=== PATIENT | female | born 1960 | race Caucasian/White ===

== ENCOUNTER 2019-03-08 22:33 | Emergency (ER) | payer MEDICAID ==
[~2019-03-08] VITALS: Ht 167.6 cm; Wt 70.8 kg
[~2019-03-08 22:33] MED LIST: PANT40TA2 PO
[2019-03-08 22:59] VITALS: BP 113/71
== END 2019-03-09 02:11 | disposition home or self-care (01) ==
LOC: ER 22:41
DX: M79.674 Pain in right toe(s) (principal); Z90.49 Acquired absence of other specified parts of digestive tract; Z98.890 Other specified postprocedural states
CPT/HCPCS: 73630-TC; 73660-TC

== ENCOUNTER 2019-07-02 11:34 | Emergency (ER) | payer MEDICAID ==
[~2019-07-02] VITALS: Ht 167.6 cm; Wt 69.4 kg
--- NOTE | 2019-07-02 11:47 | NUR ---
"BIBDUAGHTER,C/O CHEST SHARP PAIN WITH SOB x 2 DAYS, RADIATING TO UPPER BACK 10/ PS" PT AAOX4, -SOB, NAD NOTED, VSS, PENDING MD CAMPOS
[2019-07-02] MEDS ORDERED: ONDANSETRON HCL/PF 4 MG/2 ML VIAL IVP ONE (12:00)
[2019-07-02] MEDS ORDERED: IV NS 0.9% 1,000 ML BAG IV ONE (12:00)
[2019-07-02] MEDS ORDERED: KETOROLAC TROMETHAMINE INJ 30 MG/ML VIAL IV ONE (12:00)
[2019-07-02] MEDS ORDERED: MORPHINE SULFATE INJ 2 MG/ML DISP.SYRIN IV ONE (12:00)
[2019-07-02] MEDS ORDERED: ONDANSETRON HCL/PF 4 MG/2 ML VIAL ONE (12:05)
[2019-07-02] MEDS ORDERED: MORPHINE SULFATE INJ 4 MG/ML DISP.SYRIN ONE (12:05)
[2019-07-02] MEDS ORDERED: KETOROLAC TROMETHAMINE 15 MG/ML VIAL ONE (12:05)
[2019-07-02 12:13] LABS: BASOPHILS % (AUTO) 0.6 % (0.0-2.0); EOSINOPHILS % (AUTO) 2.6 % (0.0-6.0); HEMATOCRIT 38 % (33-45); HEMOGLOBIN 12.6 g/dL (11.5-14.8); LYMPHOCYTES # (AUTO) 1.4 /CMM (0.8-4.8); LYMPHOCYTES % (AUTO) 25.2 % (20.0-44.0); MEAN CORPUSCULAR HGB CONC 34 g/dl (31.0-36.0); MEAN CORPUSCULAR VOLUME 94 fL (82-100); MONOCYTES # (AUTO) 0.5 /CMM (0.1-1.30); NEUTROPHILS # (AUTO) 3.5 /CMM (1.8-8.9); NEUTROPHILS % (AUTO) 62.6 % (43.0-81.0); PLATELET COUNT (AUTO) 249 /CMM (150-450); RED BLOOD CELL COUNT(AUTO) 4.02 MIL/uL (4.0-5.2); WHITE BLOOD COUNT (AUTO) 5.6 K/uL (4.3-11.0)
[2019-07-02 12:20] LABS: CALCIUM, SERUM 9.4 mg/dL (8.5-10.1); CARBON DIOXIDE 31 mmol/L (21-32); CHLORIDE 105 mmol/L (98-107); CREATININE 0.7 mg/dL (0.6-1.3); GLUCOSE 76 mg/dL (74-106); POTASSIUM 3.9 mmol/L (3.5-5.1); SODIUM SERUM 140 mmol/L (136-145); UREA NITROGEN, BLOOD 17 mg/dL (7-18)
[2019-07-02] MEDS ORDERED: HYDROCODONE/APAP 5/325MG 1 EACH TABLET ONE (12:45)
[2019-07-02 13:49] VITALS: BP 121/75
--- NOTE | 2019-07-02 13:49 | NUR ---
Patient discharged to home in stable condition. Written and verbal after care instructions given. Patient verbalizes understanding of instruction. IV removed. Catheter intact and site benign. Pressure and 4x4 applied to site. No bleeding noted.
== END 2019-07-02 13:50 | disposition home or self-care (01) ==
LOC: ER 11:34
DX: R07.89 Other chest pain (principal); Z90.49 Acquired absence of other specified parts of digestive tract; Z98.890 Other specified postprocedural states; Z79.899 Other long term (current) drug therapy
CPT/HCPCS: 36415; 71045; 80048; 84484; 85025; 85378; 93005; 96374; 96375; 99284; J1885; J2270; J2405; J7030

== ENCOUNTER 2025-06-28 17:34 | Emergency (ER) | payer MEDICAID ==
[~2025-06-28] VITALS: Ht 167.6 cm; Wt 76.2 kg
[2025-06-28 17:45] VITALS: TEMP 98.3
[2025-06-28] MEDS ORDERED: ACETAMINOPHEN ES 500 MG TABLET ONE (18:04)
[2025-06-28] MEDS: ACETAMINOPHEN 325 MG TABLET PO ONE (18:07)
[2025-06-28 19:59] VITALS: BP 124/79; O2SAT 97
== END 2025-06-28 19:59 | disposition home or self-care (01) ==
LOC: ER 17:40
DX: M25.512 Pain in left shoulder (principal); Z78.0 Asymptomatic menopausal state; Z90.49 Acquired absence of other specified parts of digestive tract
CPT/HCPCS: 71045-TC; 73030-TC